=== PATIENT | female | born 1980 | race Two or more races ===

== ENCOUNTER 2022-10-01 09:38 | Emergency (ER) | payer OTHER ==
[~2022-10-01] VITALS: Ht 154.9 cm; Wt 50.3 kg
[2022-10-01] MEDS ORDERED: ALBUTEROL2.5 MG/3 M IH (11:31)
[2022-10-01] MEDS ORDERED: DOLOGEN CAPLET1 EACH PO (11:31)
[2022-10-01] MEDS ORDERED: TUSNEL LIQUID178 ML PO (11:31)
[2022-10-01] MEDS ORDERED: OSEL75CA PO (11:31)
== END 2022-10-01 11:48 | disposition home or self-care (01) ==
LOC: ER 09:38
DX: J10.1 Influenza due to other identified influenza virus with other respiratory manifestations (principal); Z87.09 Personal history of other diseases of the respiratory system; J45.909 Unspecified asthma, uncomplicated

== ENCOUNTER 2023-11-29 12:02 | Emergency (ER) | payer OTHER ==
[~2023-11-29] VITALS: Ht 154.9 cm; Wt 49.9 kg
[~2023-11-29 12:02] MED LIST: ALBUTEROL2.5 MG/3 M IH; DOLOGEN CAPLET1 EACH PO; OSEL75CA PO; TUSNEL LIQUID178 ML PO
[2023-11-29] MEDS ORDERED: ONDANSETRON HCL 2 MG/ML VIAL IV ONE (15:30)
[2023-11-29] MEDS ORDERED: ACETAMINOPHEN 500 MG GEL..CAP PO ONE ×2 (15:30→15:32)
[2023-11-29] MEDS ORDERED: ONDANSETRON HCL 2 MG/ML VIAL ONE (15:32)
[2023-11-29 16:06] LABS: HEMATOCRIT 41.2 % (36.0-45.00); HEMOGLOBIN 14.4 g/dL (12.0-15.00); MEAN CELL VOLUME 85.6 fL (80.00-100.00); MEAN CORPUSCULAR HEMOGLOBIN 29.9 pg (27.00-32.0); MEAN CORPUSCULAR HGB CONC 34.9 g/dl (32.0-36.0); PLATELET COUNT 312 K/uL (150-450); RED BLOOD COUNT 4.81 M/uL (4.00-6.00); RED CELL DISTRIBUTION WIDTH 14.4 % (11.5-14.5)
[2023-11-29 16:23] LABS: CALCIUM 10.2 mg/dL (8.5-10.1); CREATININE SERUM 0.62 mg/dL (0.55-1.02); GFR 106.08; POTASSIUM 4.09 mEq/L (3.5-5.1)
[2023-11-29 17:45] LABS: URINE APPEARANCE Clear; URINE BILIRRUBIN Negative (NEGATIVE); URINE BLOOD Negative; URINE COLOR Yellow; URINE GLUCOSE Negative (NEGATIVE); URINE KETONE Negative (NEGATIVE); URINE LEUKOCYTE Trace; URINE NITRATE Negative; URINE PROTEIN Negative (NEGATIVE); URINE UROBILINOGEN 0.2 E.U./dl
[2023-11-29 17:51] LABS: URINE BACTERIA 5924.3 uL (0.0-1933); URINE EPITHELIAL CELLS 56.5 uL (0.0-38.8); URINE RBC 34.8 uL (0.0-20.8); URINE WBC 73.4 uL (0.0-23.2)
[2023-11-29 18:37] LABS: URINE CAST 1.22 uL (0.0-1.40); URINE MUCUS SCANT
[2023-11-29] MEDS ORDERED: MACROBID 100 M100 MG PO (19:01)
[2023-11-29] MEDS ORDERED: KETOROLAC TROMETHAMINE 60 MG VIAL IM ONE ×2 (19:25→19:30)
== END 2023-11-29 19:08 | disposition home or self-care (01) ==
LOC: ER 12:04
PROVIDERS: Nurse Practitioner Family
DX: N39.0 Urinary tract infection, site not specified (principal); R10.2 Pelvic and perineal pain; J45.909 Unspecified asthma, uncomplicated; D25.9 Leiomyoma of uterus, unspecified